=== PATIENT | male | born 1960 | race Caucasian/White ===

== ENCOUNTER → 2017-08-27 11:35 | Outpatient (CLI) | payer OTHER ==
[2014-05-19 14:41] VITALS: BMI 31.7
[~2017-08-27 11:35] MED LIST: PROTONIX40 MG PO
== END | disposition home or self-care (01) ==
LOC: D.OPS 11:35 → D.RAD 13:00 → D.OPS 13:00
DX: M25.552 Pain in left hip (principal); Z01.812 Encounter for preprocedural laboratory examination

== ENCOUNTER → 2017-10-01 13:39 | Outpatient (CLI) | payer OTHER ==
[2014-05-19 14:41] VITALS: BMI 31.7
== END | disposition home or self-care (01) ==
LOC: D.MRI 13:39
DX: M25.552 Pain in left hip (principal)

== ENCOUNTER → 2017-10-21 09:36 | Outpatient (CLI) | payer OTHER ==
[2014-05-19 14:41] VITALS: BMI 31.7
== END | disposition home or self-care (01) ==
LOC: D.SP 09:36 → D.RAD 10:30 → D.SP 10:30
DX: M16.12 Unilateral primary osteoarthritis, left hip (principal)

== ENCOUNTER 2018-09-16 06:50 | Day surgery (SDC) | payer BC, MEDICARE ==
[2018-09-10 17:01] LABS: BASOPHILS 0.6 % (0-2); EOSINOPHILS 5.4 % (0-7); HEMATOCRIT 41.3 % (42.0-54.0); HEMOGLOBIN 14.3 g/dL (13.5-17.5); IMMATURE GRANULOCYTES 0.1 % (0-5); LYMPHOCYTES 32.5 % (15-50); MCH 30.5 pg (26.0-34.0); MCHC 34.6 g/dL (31.0-37.0); MCV 88.1 fL (80.0-100.0); MONOCYTES 8.3 % (2-11); NEUTROPHILS 53.1 % (40-80); PLATELET COUNT 232 10x3/uL (130-400); RBC 4.69 10x6/uL (4.20-6.10); RDW 13.1 % (11.5-14.5); WBC 8.9 10x3/uL (4.8-10.8)
[2018-09-10 17:09] LABS: CALC OSMOLALITY 288 mosm/kg (275-300); CALCIUM 8.6 mg/dL (8.5-10.1); CARBON DIOXIDE 28.9 mmol/L (21.0-32.0); CHLORIDE - SERUM 107 mmol/L (98-107); CREATININE - SERUM 0.8 mg/dL (0.6-1.3); GLUCOSE 101 mg/dL (74-106); POTASSIUM - SERUM 3.9 mmol/L (3.5-5.1); SODIUM 143 mmol/L (136-145); UREA NITROGEN 24 mg/dL (7-18); eGFR NON AFRICAN AMERICAN > 90 mL/min (90-120)
[~2018-09-16] VITALS: Ht 185.4 cm; Wt 111.1 kg
[~2018-09-16 06:50] MED LIST changes: +GABAPENTIN100 MG PO; +HYDROCODON-ACE1 EA10 PO; +NAPROSYN500 MG PO; +NORVASC5 MG PO; +PRINIVIL20 MG PO
[2018-09-16 08:31] VITALS: BP 146/83; Ht 185.4 cm; Wt 111.1 kg
--- NOTE | 2018-09-16 17:32 | NUR ---
1445 IV DC'D. CATHETER INTACT. PRESSURE HELD UNTIL BLEEDING STOPPED. BANDAID APPLIED.
--- NOTE | 2018-09-16 17:37 | NUR ---
1440 PT STATES HIS PAIN LEVEL IS A 6. OFFERED HIM PAIN MEDICATION BUT PT WANTS TO WAIT UNTIL HE GETS HOME TO TAKE PAIN MED.
== END 2018-09-16 15:28 | disposition home or self-care (01) ==
LOC: D.OPS 06:50 → D.PAN 08:15 → D.OPS 09:00
PROVIDERS: ATTEND Orthopaedic Surgery
DX: S83.242A Other tear of medial meniscus, current injury, left knee, initial encounter (principal); S83.282A Other tear of lateral meniscus, current injury, left knee, initial encounter; M22.42 Chondromalacia patellae, left knee; M76.892 Other specified enthesopathies of left lower limb, excluding foot; M65.862 Other synovitis and tenosynovitis, left lower leg; Z01.812 Encounter for preprocedural laboratory examination

== ENCOUNTER 2018-11-16 20:45 | Emergency (ER) | payer BC, MEDICARE ==
[~2018-11-16] VITALS: Ht 185.4 cm; Wt 110.0 kg
[2018-11-16 20:57] VITALS: Ht 185.4 cm; Wt 110.0 kg
[2018-11-16 21:48] LABS: BASOPHILS 0.1 % (0-2); EOSINOPHILS 0.1 % (0-7); HEMATOCRIT 45.1 % (42.0-54.0); IMMATURE GRANULOCYTES 0.2 % (0-5); LYMPHOCYTES 10.7 % (15-50); MCH 31.2 pg (26.0-34.0); MCHC 35.5 g/dL (31.0-37.0); MCV 87.9 fL (80.0-100.0); MEAN PLATELET VOLUME 10.2 fL (7.4-10.4); MONOCYTES 6.9 % (2-11); PLATELET COUNT 259 10x3/uL (130-400); RBC 5.13 10x6/uL (4.20-6.10); RDW 13.3 % (11.5-14.5); WBC 12.4 10x3/uL (4.8-10.8)
[2018-11-16 22:53] LABS: APPEARANCE CLEAR (CLEAR); BILIRUBIN NEGATIVE (NEGATIVE); COLOR YELLOW (YELLOW); GLUCOSE NEGATIVE (NEGATIVE); KETONE NEGATIVE (NEGATIVE); NITRITE NEGATIVE (NEGATIVE); PROTEIN NEGATIVE (NEGATIVE); UROBILINOGEN NORMAL (NORMAL)
[2018-11-16 22:54] LABS: ALBUMIN 4.1 g/dL (3.4-5.0); ALKALINE PHOSPHATASE 96 U/L (46-116); ALT (SGPT) 42 U/L (10-68); BILIRUBIN - TOTAL 1.12 mg/dL (0.2-1.3); CALC OSMOLALITY 281 mosm/kg (275-300); CALCIUM 8.9 mg/dL (8.5-10.1); CARBON DIOXIDE 25.4 mmol/L (21.0-32.0); CHLORIDE - SERUM 103 mmol/L (98-107); CREATININE - SERUM 0.8 mg/dL (0.6-1.3); GLUCOSE 137 mg/dL (74-106); POTASSIUM - SERUM 3.7 mmol/L (3.5-5.1); SODIUM 140 mmol/L (136-145); UREA NITROGEN 16 mg/dL (7-18); eGFR NON AFRICAN AMERICAN > 90 mL/min (90-120)
[2018-11-16 22:54] LABS: BACTERIA FEW /hpf (NONE SEEN); WHITE CELLS - URINE 0-5 /hpf (0-5)
[2018-11-16] MEDS ORDERED: TORADOL10 MG PO (23:40)
== END 2018-11-16 23:53 | disposition home or self-care (01) ==
LOC: D.ER 20:45
PROVIDERS: Family Medicine
DX: N20.0 Calculus of kidney (principal)

== ENCOUNTER 2019-01-21 14:56 | Emergency (ER) | payer BC, MEDICARE ==
[~2019-01-21] VITALS: Ht 185.4 cm; Wt 106.8 kg
[~2019-01-21 14:56] MED LIST changes: +TORADOL10 MG PO
[2019-01-21 15:05] VITALS: Ht 185.4 cm; Wt 106.8 kg
[2019-01-21] MEDS ORDERED: HYDROCODON-ACE1 EA10 PO (15:06)
[2019-01-21] MEDS ORDERED: TORADOL10 MG PO (16:36)
[2019-01-21 17:00] VITALS: BP 155/85
== END 2019-01-21 17:00 | disposition home or self-care (01) ==
LOC: D.ER 14:56
DX: S61.512A Laceration without foreign body of left wrist, initial encounter (principal); W26.0XXA Contact with knife, initial encounter